=== PATIENT | male | born 1980 | race Caucasian/White ===

== ENCOUNTER 2018-09-18 05:57 | Day surgery (SDC) | payer OTHER ==
[~2018-09-18] VITALS: Ht 167.6 cm; Wt 86.0 kg
[2018-09-18 07:17] VITALS: Ht 167.6 cm; Wt 86.0 kg
[2018-09-18] MEDS ORDERED: insulin SC (07:44)
[2018-09-18] MEDS ORDERED: cholesterol med PO (07:44)
[2018-09-18] MEDS ORDERED: htn med PO (07:44)
[2018-09-18 08:16] VITALS: BP 144/76; PULSE 80; RESP 20
[2018-09-18] MEDS ORDERED: MIDAZOLAM 1 MG/ML 2 ML INJ ONE ×2 (09:28)
[2018-09-18] MEDS ORDERED: FENTAnyl 50 MCG/ML VIAL ONE (09:28)
== END 2018-09-18 11:30 | disposition home or self-care (01) ==
LOC: GIL 05:57
PROVIDERS: ATTEND Internal Medicine Gastroenterology
DX: K29.50 Unspecified chronic gastritis without bleeding (principal); B37.81 Candidal esophagitis; K44.9 Diaphragmatic hernia without obstruction or gangrene; E11.9 Type 2 diabetes mellitus without complications
CPT/HCPCS: 43239; J2250; J3010; Z7610; 88305; 88312; 88313